=== PATIENT | male | born 1980 | race Caucasian/White ===

== ENCOUNTER 2018-05-20 11:53 | Emergency (ER) | payer OTHER ==
--- NOTE | 2018-05-20 12:21 | EDPHY ---
H & P Stated Complaint: nail in left finger Time Seen by Provider: 05/20/18 12:16 HPI/ROS: HPI: This is a 37-year-old male who presents with Chief Complaint: Nail in left finger Location: Left ring finger Quality: Nail Duration: Prior to arrival Signs and Symptoms: No bleeding, no radiation, no numbness, no weakness, no tingling, no incontinence, + decreased range of motion, no swelling, + pain, no fever Timing: Acute Severity: Moderate Context: Patient is right-hand dominant, presents with accidentally, shooting the nail gun toward his left hand and the nail went into his left ring finger. The nail is currently stuck into his left ring finger sticking out both sides. Reports that he was building cabinet wall. The nail is approximately 3 1/4 inch and covered with paper but he reports the paper did not go through his finger. He reports pain with mild decreased range of motion. Reports tetanus is current. Denies numbness, paresthesias, skin color changes. Modifying Factors: None Comment: ROS: see HPI Constitutional: No fever, no chills, no weight loss Eyes: No blurred vision Respiratory: No shortness of breath, no cough Cardiovascular: No chest pain Gastrointestinal: No nausea, no vomiting no diarrhea Genitourinary: No dysuria Extremities: No myalgias Neurologic: No weakness, no numbness Skin: No rashes Hematologic: No bruising, no bleeding MEDICAL/SURGICAL/SOCIAL HISTORY: Medical history: Generally healthy. Does not take any regular medications. Surgical history: Denies Social history: Currently engaged and to be in 3 weeks. Never smoked. CONSTITUTIONAL: Extremely polite and cooperative adult white male, father at bedside, awake and alert, no obvious distress EXTREMITIES: 2/2 pulses, strength 5/5, left ring finger shows verito nail currently imbedded in the distal portion; nail is able to be seen on both sides ; passing through the DIP joint. PIP/MCP flexion/extension intact with good light touch sensation. no deformities, no clubbing, no cyanosis or edema. NEUROLOGICAL: no focal neuro deficits. GCS 15. Light touch sensation intact. SKIN: Warm and dry, no erythema. no rash. Good capillary refill. Source: Patient Exam Limitations: No limitations - Personal History Current Tetanus/Diphtheria Vaccine: Yes Current Tetanus Diphtheria and Acellular Pertussis (TDAP): Yes Tetanus Vaccine Date: < 10 years - Medical/Surgical History Hx Asthma: No Hx Chronic Respiratory Disease: No Hx Diabetes: No Hx Cardiac Disease: No Hx Renal Disease: No Hx Cirrhosis: No Hx Alcoholism: No Hx HIV/AIDS: No Hx Splenectomy or Spleen Trauma: No Other PMH: none - Social History Smoking Status: Never smoked Constitutional: Initial Vital Signs Temperature (C) 36.7 C 05/20/18 11:54 Heart Rate 67 05/20/18 11:54 Respiratory Rate 18 05/20/18 11:54 Blood Pressure 152/114 H 05/20/18 11:54 O2 Sat (%) 94 05/20/18 11:54 O2 Delivery Mode Room Air Allergies/Adverse Reactions: No Known Allergies Allergy (Unverified 05/20/18 11:54) Home Medications: Medication Instructions Recorded Cephalexin [Keflex (*)] 500 mg PO QID #28 cap 05/20/18 Medical Decision Making Procedures: Procedure: Foreign body removal from left ring finger. Anesthesia: 6 mL of 1% lidocaine without epinephrine After verbal consent was obtained, the carpentry nail was removed from left ring finger. The foreign body was removed manually with forceps under direct visualization. There were no complications. The procedure was performed by myself. Procedure: Splint placement. A left ring finger aluminum finger splint was applied the Emergency Room civil drafting technician. After application of the splint I returned and re-examined the patient. The splint was adequately immobilizing the joint and distal to the splint the patient's circulation and sensation was intact. ED Course/Re-evaluation: Tetanus is current. Digital block performed for local anesthesia of 6 mL of 1% lidocaine without epinephrine. Finger x-ray shows nail passing directly through the DIP joint. IV access obtained and 1 g Ancef given. Irrigated copiously and soaked in a solution of 50/50 of Betadine and normal saline Xeroform and aluminum finger splint applied. Prescription for Keflex given after discussion with attending No signs of neurovascular compromise/tenting of skin/compartment syndrome/ extremities and joints examined above and below area of concern and are neurovascularly intact. This patient was seen under the supervision of my secondary supervising physician. I evaluated care for this patient independently. Discussed this patient with Dr. Bueno. Differential Diagnosis: Differential diagnosis includes but is not limited to foreign body, nerve injury , tendon injury, phalanx fracture. - Data Points Medications Given: Discontinued Medications Cefazolin Sodium/Dextrose (Ancef 1 Gm (Premix)) 50 mls @ 200 mls/hr IV EDNOW ONE PRN Reason: Protocol Stop: 05/20/18 12:59 Last Admin: 05/20/18 13:05 Dose: 50 mls Departure - Departure Disposition: Home, Routine, Self-Care Clinical Impression: Foreign body finger Injury of finger by nail gun Qualifiers: Encounter type: initial encounter Laterality: left Qualified Code(s): S69.92XA - Unspecified injury of left wrist, hand and finger(s), initial encounter Condition: Good Instructions: Soft Tissue Foreign Body (ED), Cellulitis (ED) Additional Instructions: Keep the dressing/splint dry and in place for 48 hours. After 48 hours, you may remove the dressing; wash the site daily with mild soap and water; then pat dry. Take Tylenol 650 mg every 4 hours and/or Ibuprofen 600 mg every 8 hours with food as needed for pain. Take antibiotics as directed until complete. Do not skip a dose. Return to the ER immediately if you experience redness, red streaks, have fevers /chills, flu like symptoms, limited range of motion, or any other symptoms that concern you. Referrals: Brenden Campbell MD [Medical Doctor] - As per Instructions Prescriptions: Cephalexin [Keflex (*)] 500 mg PO QID #28 cap
[2018-05-20 14:04] VITALS: BP 137/87
== END 2018-05-20 14:04 | disposition home or self-care (01) ==
PROC: 2W3KX1Z Immobilization of Left Finger using Splint (ICD-10-PCS; principal; 2018-05-20)
DX: S61.241A Puncture wound with foreign body of left index finger without damage to nail, initial encounter (principal); W29.4XXA Contact with nail gun, initial encounter; Y93.H3 Activity, building and construction
CPT/HCPCS: 96365; J0690; L3925